=== PATIENT | female | born 1945 | race Caucasian/White ===

== ENCOUNTER 2019-12-16 21:04 | Observation (INO) ==
[2019-12-17] MEDS: ONDANSETRON INJ 2 MG/ML 2 ML VIAL IV PRN ×2 (00:41→12:50)
[2019-12-17] MEDS ORDERED: POLYETHYLENE (MIRALAX) 17 GM PACK PO PRN (01:10)
[2019-12-17] MEDS ORDERED: ALUMINUM/MAGNESIUM SUSP 30 ML UDC PO PRN (01:10)
[2019-12-17] MEDS ORDERED: ALBUT/IPRATROP 3MG/0.5MG NEB 3 ML VIAL INH PRN (01:15)
[2019-12-17] MEDS ORDERED: ALBUTEROL HFA 8 GM INHALER INH PRN (01:15)
--- NOTE | 2019-12-17 01:36 | History & Physical Report ---
Date of Service December 17, 2019 Assessment & Plan (1) COPD (chronic obstructive pulmonary disease): Wanda Wagoner is a 74 year old woman with an unfortunate PMH of severe COPD and stage IV lung cancer with recurrent malignant pleural effusion here for an acute episode of dyspnea Dyspnea with recurrent malignant pleural effusion X ray showing large plerual effusion returned on left side. Currently causing hypoxemic respiratory failure beyond baseline up to 4L from 2L at home Patient was successfully tapped for approximately [address] Zimmer in September which did result in a trapped lung Dr. Zimmer did not believe she was a good candidate for pleur X catheter placement secondary to infection risk Will repeat CXR in am and consulted Dr. Baker for evaluation of effusion and possible drainage Lung Cancer Stage IV adenocarcinoma of left lung, metastatic Not receiving any treatment currently, declined port last month She tells me she wants to do everything possible but was told there is nothing that can be done by her oncologist Consulted oncology for further discussion as patient feels unsure over her treatment options Patient tells me she would like to remain alive as long as possible even though she is aware this is a terminal condition and is asking to be a full code. Tachycardia Likely secondary to pleural effusion Patient also at higher risk for PE, will continue to monitor and low threshold for CTA COPD Continuing home inhalers and duonebs PRN DOes not appear to be COPD exacerbation Home baseline of 2 L of O2 continuously Hyperlipidemia Continue home atorvastatin HTN Continue home bisoprolol and HCTZ Patient hypertensive at present will continue to monitor GERD: Continue home omeprazole Anxiety and Derpession Continuing home lorazepam 1mg PO TID PRN and amitriptylene F/E/N: Regular diet tolerating food well DVT PPX: Will hold lovenox for potential tap tomorrow morning Dispo: Med Tele for (2) Hyperlipemia: (3) Lung cancer: (4) Pleural effusion on left: (5) Dyspnea: Admission and Anticipated Discharge Date Admission Date: December 17, 2019 History of Present Illness Chief Complaint: SHortness of breath, direct admit from [facility] for malignant pleural effusion Primary Care Provider: Peggy Yousif PA-C Wanda Wagoner is a very pleasant 74 year old woman with a past medical history significant for stage IV lung cancer currently not receiving treatment with recurrent malignant pleural effusion. THis was most recently tapped here in September of this year by Dr. Zimmer for 1500 ml with resultant trapped lung. She was referred for oncology but declined therapy and believes there is nothing they can do for her. She does tell me she wants everything done at this point to stay alive as long as possible but did not believe there are any treatments available for her cancer. She declined port placement last month. She has been doing well on 2 L of oxygen at home, but afternoon of 12/15 while sitting on her couch watching television she became acutely short of breath. This came out of the blue like light switch turning on and resolved with her inhalers. Her oxygenation status was poor even after the subjective dyspnea resolved with O2 sats she measured in the high 70's. She called the ambulance who brought her into outside hospital for evaluation. In ED labwork was notable for no elevated white count, negative troponin. Her vital signs significant for hypoxemic respiratory failure requiring 4L up from her home baseline of 2. She was found to have a recurrence of her malignant pleural effusion on the left side that she has had in the past on CXR. Decision was made to transfer here for further evaluation and possible thoracentesis or pleur x catheter placement. CUrrently she tells me she is feeling at her baseline in terms of her respiratory status. SHe is endorsing nausea which she says she always has and that it comes and goes. She denies chest pain, leg swelling, abdominal distension at present though she tells me at times her abdomen does appear distended. She has no belly pain, no vomiting, no diarrhea or constipation. She tells me she has been eating and drinking well and denies any other concerns on review of systems. She remains of 4L O2 via NC and is saturating around 92%. She is tachycardic into the 120's sinus, her blood pressure has been hypertenisve currently at 153/90. Allergies Allergy/AdvReac Type Severity Reaction Status Date / Time influenza virus vaccine, Allergy Severe Respiratory Verified 10/31/19 08:26 specific failure cephalexin [From Keflex] Allergy Mild Rash Verified 10/31/19 08:26 Home Medications Home Medications Medication Instructions Recorded Confirmed Type albuterol sulfate 90 mcg/actuation 2 puffs INH Q4H PRN 07/15/19 10/31/19 History aerosol inhaler amitriptyline 100 mg tablet 100 mg PO HS 07/15/19 10/31/19 History atorvastatin 10 mg tablet 10 mg PO HS 07/15/19 10/31/19 History bisoprolol 5 1 tab PO QAM 07/15/19 10/31/19 History mg-hydrochlorothiazide 6.25 mg tablet ipratropium-albuterol 3 ml INHALATION QID PRN 09/04/19 10/31/19 History lorazepam [Ativan] 1 mg PO TID PRN 09/04/19 10/31/19 History omeprazole 20 mg PO QAM 09/04/19 10/31/19 History prednisone 10 mg tablet See Rx Instructions PO DAILY #20 10/17/19 10/31/19 Rx tab tiotropium 2.5 mcg-olodaterol 2.5 2 puffs INH DAILY #4 gm 10/17/19 10/31/19 Rx mcg/actuation mist for inhalation Past Med/Surg History Social History (Updated 09/03/19 @ 11:01 by Maylin Garcia RN) Preferred Language: [place] Communication Ability: Effective Pediatric Registered Nurse Required: No Beliefs That Will Affect Care: None marital status: Current Living Situation: Spouse Current Living Situation Comment: Lives w/ , daughters live in close vicinity and are active in 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 Other Information That Helps Us Care for You: No Feels Safe at Home: Yes Safety Concerns: Feels Safe At This Time Smoking Status: Former smoker Tobacco Type: cigarettes ; packs per day: 1 ; Cigarettes Per Day: 20 ; Do You Dip or Chew Tobacco: No ; Smoking End Date: 2005 - Smoked ppd x 40 yrs ; Second Hand Exposure: Yes ; Hx Alcohol Use: No Hx Substance Use: No Review of Systems Review of Systems: All systems reviewed & are unremarkable except as noted in HPI & below Physical Exam Physical Exam: Constitutional: Frail appearing 74 year old woman sitting up in bed, in no acute distress conversing comfortably with nasal cannula in place at 4L Eyes: Anicteric sclerae, EOMMI bilaterally ENMT: No concerns at present Respiratory: Lungs sounds diminished globally and absent left mid and lower lung panchal Cardiovascular: HEart sounds dual, no m/r/s/g, peripheral pulses strong and equal, tachycardic, regular rhythm trace lower extremity edema GI: Abdomen, soft nontender, non distended, no masses SKin: No lesions, no wounds appreciated Neuro: Awake alert and oriented to person place, time and situation Results & Data Results & Data ([facility]) Vital Signs (Past 12 Hours) Vital Signs Temp Pulse Resp BP Pulse Ox 12/17/19 00:13 36.8 C 119 H 20 153/90 H 92 Code Status & VTE Plan VTE Prophylaxis Plan VTE Prophylaxis will be ordered: Yes Supervising Physician Co-Signing Physician Notes Patient seen and examined, chart reviewed, case discussed with Dr. Patel and I agree with his assessment and plan as documented above. Briefly, patient is a 74yo C female with history of COPD on 2L O2 at home, stage IV NSCLC with recurrence of left sided malignant pleural effusion, dyspnea and tachycardia. She initially presented to [facility] and was subsequently transferred to [facility] as she has had thoracentesis x 2 in the past by Dr. Zimmer in August and September On exam she is afebrile, tachycardic, RR=20, 92% on RA Resting comfortably, NAD, speaking in complete sentences Heart - +S1/S2, regular, tachycardic, no m/r/g Lungs - markedly diminished BS on left, dullness to percussion, no rales/rhonchi/wheezes Abd - +BS, soft, NT/ND Ext - no edema, tenderness, redness Labs and image report from [facility] reviewed CXR with large left pleural effusion EKG with ST at 116bpm, no acute ischemic changes Assessment/Plan: 74yo C female with COPD, Stage IV NSCLC presenting with dyspnea, tachycardia, increased O2 requirement in setting of recurrence of left sided pleural effusion -Admit to PCU -Continue supplemental O2 as needed to maintain saturation 88-92% in patient with COPD -Consult Pulmonology for thoracentesis in AM, ?Placement of PleurX catheter - appreciate assistance with this case. Patient presently in no visible respiratory distress. Should she acutely decompensate overnight will perform bedside thoracentesis. -Consult Oncology re: treatment options for patients malignancy. Appreciate assistance wtih this case -Monitor HR - upon review of patient's prior hospital days her resting HR tends to be mildly elevated (88 - 122 bpm). Most likely multifactorial - medication effects, dyspnea. Once medically optimized may consider increasing home dose of BB -Remainder of plan as above Resident Activity Tracking Resident Involvement: Resident Care Provided Care Provided: Adult Hospital Medicine
[2019-12-17] MEDS: ACETAMINOPHEN 325 MG TAB PO PRN ×2 (02:20→08:34)
[2019-12-17] MEDS: LORazepam 1 MG TAB PO PRN ×2 (02:21→18:48)
[2019-12-17] MEDS: AMITRIPTYLINE HCL 100 MG TAB PO SCH ×2 (02:21→19:48)
[2019-12-17] MEDS: ATORVASTATIN 10 MG TAB PO SCH ×2 (02:21→19:48)
--- NOTE | 2019-12-17 05:07 | Billing Data ---
Date of Service December 17, 2019 Coding Level of Care Code 13958 Initial Inpt Care Lvl 3
[2019-12-17] MEDS ORDERED: ENOXAPARIN INJ 30 MG/0.3 ML SYR SQ SCH (06:00)
[2019-12-17] MEDS: PANTOprazole 40 MG TAB PO SCH (08:34)
[2019-12-17] MEDS: hydroCHLOROthiazide 25 MG TAB PO SCH (08:34)
[2019-12-17] MEDS: BISOPROLOL FUMARATE 5 MG TAB PO SCH (08:34)
--- NOTE | 2019-12-17 10:44 | Consultation Report ---
DATE OF CONSULTATION: 12/17/2019 NOTICE TO RECEIVING DEMOCRAT/AGENCY This information is strictly Confidential and protected under [place] law. [place] law prohibits you from making any further disclosure of this information unless further disclosure is expressly permitted by the written consent of the person to whom it pertains or is authorized by law. A general authorization for the release of medical or other information is not sufficient for this purpose. Hospital accepts no responsibility if the information is made available to any other person, INCLUDING THE PATIENT. REASON FOR CONSULTATION: History of stage IV nonsmall cell lung cancer. Diagnosis established in May of 2019. The patient was admitted for direct transfer from [facility] because of acute onset shortness of breath and dyspnea on exertion. HISTORY OF PRESENT ILLNESS: Wanda Wagoner is a pleasant 74-year-old elderly female from [facility] well known to [facility] originally evaluated by Dr. Aragon, last seen in August of 2019 to discuss treatment options for recently diagnosed nonsmall cell lung cancer. According to Dr. Aragon's documentation, the patient had presented in May, status post fall, had come to the Emergency Room and CT of the chest performed on 06/16/2014 revealed a 2.4 cm lung mass in the superior segment of the left lower lobe. She had a followup PET CT scan, which also confirmed a hypermetabolic mass in the same location as well as a left pleural effusion and incidentally noted focus of uptake in the anterolateral wall of the ascending colon. She subsequently underwent thoracentesis on 09/04/2019 and cytology was sent. Pathology was positive for adenocarcinoma of the lung. There was PD-L1 40% positive. The remainder of the biomarkers were pending. Again, the patient saw Dr. Aragon on 09/20/2019 and according to his assessment the patient was considering proceeding with combination carboplatin, pemetrexed and pembrolizumab awaiting the remainder of her biomarkers. He had also recommended colonoscopy to be done to further investigate the radiographic findings described above. When I interviewed Wanda this morning she made it relatively clear to me that she had opted not to pursue chemotherapy citing fear of side effects and feeling sick during treatment. It is now 12/17/2019 and chances are that her disease has progressed significantly. She presented with shortness of breath once again, was seen initially at [facility] in [place]. Chest x-ray revealed recurrent left pleural effusion. From a clinical standpoint, it seems like she is maintaining a reasonable performance status overall surprisingly. She has no current pain issues. She states her appetite has been relatively good, denying any overt weight loss. She obviously needs a thoracentesis and should be reconsidered for a PleurX catheter for palliation minimally. She was not the best historian and really I do not have a good handle on where she is mentally. Probably should convene with family members to collectively make a decision moving forward. Certainly, she has been delayed since diagnosis which puts her in a very poor prognostic category moving forward. PAST MEDICAL HISTORY: Stage IV adenocarcinoma of the lung (malignant left-sided pleural effusion), EGFR expression, ALK expression is all unknown. We will follow up with pathology to clarify her biomarker status. PD-L1, she is a 40% expresser by immunohistochemistry. She suffers from anxiety, COPD, depression. PAST SURGICAL HISTORY: Includes tonsillectomy, D&C, hernia repair, removal of thyroid nodule and appendectomy. CURRENT MEDICATIONS: Albuterol inhaler 2 puffs inhaled q.4 hours, amitriptyline 100 mg p.o. at bedtime, atorvastatin 10 mg p.o. at bedtime, bisoprolol 5 mg/hydrochlorothiazide 6.25 mg 1 tablet p.o. every day, ipratropium/albuterol 3 mL inhaled via nebulizer q.i.d. p.r.n., Ativan 1 mg p.o. t.i.d. p.r.n., omeprazole 20 mg p.o. daily, prednisone 10 mg, CRX instructions daily I suspect for appetite stimulation, Tiotropium 2 puffs inhaled daily. ALLERGIES: FLU VACCINE AND CEPHALEXIN. SOCIAL HISTORY: Resides with her family. She is a reformed smoker. Negative for alcohol or substance abuse. FAMILY HISTORY: Noncontributory. REVIEW OF SYSTEMS: As per HPI, most notably for subacute onset shortness of breath and dyspnea on exertion attributable to recurrent left pleural effusion. She denies anorexia or weight loss. No fevers, chills or sweats at present. SKIN: No rashes or lesions. No history of dermatoses. HEENT: Negative for headaches, lightheadedness or dizziness. No acute visual or hearing deficits. No sinus symptoms, sore throat or dysphagia. LYMPH: No history of lymphoproliferative disease. CARDIAC: No history of coronary artery disease, no angina or palpitations. PULMONARY: Positive for history of COPD. She presented with subacute onset shortness of breath and dyspnea on exertion with recurrent left-sided pleural effusion. GASTROINTESTINAL: She denies any ongoing abdominal pain. No nausea, vomiting, diarrhea or constipation, hematochezia or melenotic stools. GENITOURINARY: No hematuria, dysuria, urinary incontinence. PSYCHIATRIC: Positive for anxiety. ENDOCRINE: Negative for thyroid disease or diabetes mellitus. MUSCULOSKELETAL: No skeletal pain. No arthralgias or myalgias. NEUROLOGIC: Negative for seizure, stroke, or migraine headache. HEMATOLOGIC: Negative for anemia, thrombophilia or bleeding diathesis. PHYSICAL EXAMINATION: GENERAL: Very pleasant 74-year-old female, in no acute distress. VITAL SIGNS: Temperature 36.5, pulse 109, respiratory rate 18, blood pressure 147/93. SKIN: Turgor is fair. No rashes or lesions. No ecchymosis or petechial rash noted. HEENT: Head is atraumatic, normocephalic. Eyes PERRLA, EOMI. Sclerae nonicteric. No conjunctival injection. Nares patent without rhinorrhea or discharge. Throat is clear. Tongue is midline. Mucous membranes are moist. NECK: Supple without JVD or thyromegaly. LYMPH: No cervical, supraclavicular, axillary palpable nodes. HEART: Regular rate and rhythm. No clicks, rubs, murmurs or gallops. PULMONARY: Diminished left posterior base breath sounds, faint expiratory wheezes heard diffusely. ABDOMEN: Soft, nontender, nondistended, without palpable hepatosplenomegaly. EXTREMITIES: No clubbing, cyanosis or edema. MUSCULOSKELETAL: Strength and pulses are equal in all 4 quadrants. NEUROLOGICAL: She is awake, alert and oriented x3. Cranial nerves II-XII are grossly intact. No focal deficits noted. LABORATORY DATA: None ordered. RADIOGRAPHIC DATA: None ordered. IMPRESSION: 1. Recurrent left sided malignant pleural effusion. 2. Stage IV adenocarcinoma of the lung (PD-L1 avid). 3. Tachycardia. 4. Exacerbation of chronic obstructive pulmonary disease. 5. Essential hypertension. 6. Anxiety/depression. PLAN: It was my pleasure to visit with Wanda at bedside today. Wanda is well known to [facility], was originally evaluated by Dr. Aragon back in August of this year with a diagnosis of stage IV nonsmall cell lung cancer. Dr. Aragon offered a salvage therapy, particularly pemetrexed and carboplatin in conjunction with pembrolizumab. The patient this morning states that therapy was indeed offered and she opted not to pursue therapy and failed to follow up further with medical oncology. She appears to be similar in mindset at bedside regarding any salvage therapy. I would be happy to engage with family members to get their thoughts moving forward before we make final disposition in Wanda's case. I think it is very reasonable to ask palliative care to weigh in. I am not objecting to providing chemo if the patient desires to pursue treatment. Obviously, there has been significant delay since diagnosis which puts her in a much poorer prognostic category moving forward. Would proceed with thoracentesis with palliative intent. Not sure if Dr. Zimmer may change his mind with PleurX catheter as insertion would certainly make life easier for Wanda moving forward. She does not appear to be suffering from skeletal pain or other symptoms suggestive of a rapid clinical decline. Again, I would be more than happy to reengage with Wanda and her family in the outpatient arena to discuss further. Would stabilize her medically and proceed with discharge when appropriate to do so. I have nothing further to add, but would be more than happy to again engage with Wanda's family to get a little better hold on her mindset and refusal of treatment.
--- NOTE | 2019-12-17 11:04 | XRay Report ---
XR chest 2V PA/lateral CLINICAL HISTORY: history of pneumo ex vacuo and malignant effusion COMPARISON STUDY: 10/14/2019 FINDINGS: Significant left pleural effusion. This appears to occupy the space of the prior pneumothor ax plus a component of mild compressive change. There is a small right effusion. Pulmonary vasculature is prominent. IMPRESSION: 1. Interval development of a large left and to a lesser extent minimal right pleural effusion. 2. Underlying components of congestive failure may be present. ACT 112: Negative or not required by law. The above report was generated using voice recognition software. It may contain grammatical, syntax or spelling errors. Electronically signed by: Lenin Hardin M.D. 12/17/2019 11:03 AM
--- NOTE | 2019-12-17 11:52 | Electrocardiogram Report ---
Test Reason : Blood Pressure : / mmHG Vent. Rate : 116 BPM Atrial Rate : 116 BPM P-R Int : 178 ms QRS Dur : 080 ms QT Int : 292 ms P-R-T Axes : 056 006 -25 degrees QTc Int : 405 ms Poor data quality, interpretation may be adversely affected Sinus tachycardia Abnormal ECG When compared with ECG of 03-SEP-2019 14:36, No significant change was found Confirmed by Lizandro Ovalle ([id number]) on 12/17/2019 11:52:12 AM Referred By: Lisseth Kearney Confirmed By:Ridge Ovalle
--- NOTE | 2019-12-17 13:37 | Palliative Care Consultation ---
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 Patient was originally seen after a fall back in Apr/May 2019, subsequently found to have a left lung mass and left pleural effusion. Pleural effusion found to be malignant. PET/CT scan showed the left lung mass as well as a lesion on the ascending colon. Patient was seen by Dr. Aragon for heme/onc. It was recommended to try a regimen of chemo as well as have a port placed, but patient declined and opted for more symptomatic treatment. She last had a thoracentesis in September [address] Zimmer. He did not favor placing a pleur-x catheter at that time due to patient's small stature and risk of infection. Patient is noted to have lost about 7kg since August 2019. She is planned to have another thoracentesis done today. Dr. Mathis saw patient for heme/onc and stated that if patient wished to pursue salvage therapy, he could offer chemo, but patient again declined. He suggested getting palliative care involved to discuss goals of care with patient and family. -Palliative MD met with patient this afternoon. Patient reported that she does not want hospice care-- has had negative prior experience with hospice. However, she does admit that she does not want any heroic measures such as CPR, intubation, etc-- see physician's addendum. Patient also confirms that she does not want chemotherapy. Patient stated to palliative physician that she would want her two daughters, Effie and Rosario, to be her decision makers if needed, and gave us permission to speak with them. -I called patient's daughter, Effie Arizmendi ([phone]). There was another female family member present in the background who I could hear. I introduced myself and palliative care. Immediately, Effie became very upset and agitated. She stated, "We don't want nothing to do with hospice or palliative care." She proceeded to state that she is very upset that her mother has been in our facility since last evening and the patient has not had her thoracentesis yet, and the family has not been contacted. I attempted to explain why I was calling and that goals had been discussed with her mother. She stated, "We know what she wants, to come home and live in peace. We know she's going to , we just want her to come home." Effie's anger escalated to a point that I was unable to speak with her further. I informed her that I would ask the attending physician to call her at her request. -Patient was changed to DNR/DNI per her wishes, as discussed with MD. Plan is for thoracentesis some time today. -Patient told case management she plans to return home where she lives with her . She declines needing home health and made it very clear she is not interested in hospice at any point. -PLease contact us if patient's condition changes or there are any further palliative care needs. For now, we will follow patient's chart peripherally. (2) Dyspnea: (3) Lung cancer: (4) COPD (chronic obstructive pulmonary disease): Supervising Physician Co-Signing Physician Notes Chart reviewed, patient seen and examined, collaborated with KODI Nixon as well as attending physician Dr. Spear. Patient reported she came to the hospital for increased shortness of breath-she has a history of left malignant pleural effusion-tapped in August for 1100 cc and tapped again on October 14 for 1450 cc. Patient also complains of nausea with vomiting which started yesterday-she reports Zofran is effective. Patient had spoken with Dr. Mathis from oncology earlier today-she is not interested in any chemo or aggressive treatment-she stated "what good would not do". Patient states she would like to return home-however there is hoping to have some fluid removed to help with her shortness of breath. Patient reports she is on 2 L of O2 at home-she has been on O2 since July. Patient stated she does not have advanced directives or living will, did name her 2 daughters as healthcare surrogate's, does not have paperwork stating such. Patient states she has been for 54 years-she feels her would want to be included in decision-making and would listen to her 2 daughters Spoke with patient regarding returning home with home health, also discussed possible hospice-patient stated she had seen "hospice" before and did not want to have anything to do with it. Discussed patient's current CODE STATUS-patient would want procedures done that would aid with her comfort, she did not want intubation, placed on a ventilator, chest compressions or shock. Explained to patient that a DO NOT RESUSCITATE order would not impact her current treatment, but would only become pertinent if there was a severe change in condition. Patient voiced understanding and gave permission to speak with her and HER-2 daughters. Refer to above notation regarding conversation between KODI Nixon and patient's daughters. Patient's goal is to return home as soon as possible, states she was able to ambulate at home to the bathroom-would get short of breath and fatigued when returning from the bathroom. She also stated she was able to do some chores around the house such as cooking. Patient does report weight loss-however does not know how much weight she has lost. PE: Patient awake and alert, positive mild distress due to nausea-patient did receive a dose of Zofran during visit. HEENT: EOMI, hearing within normal limits, poor dentition Respirations: Increased respiratory rate, diminished breath sounds right base, diminished breath sounds on the left CV: Tachycardic on exam, no edema Abdomen: Soft, nontender on light palpation Extremities: Thin and cachectic Neuro: Alert and oriented x4 Agree with above note, assessment and plan as per KODI Nixon -due to daughter's wishes for palliative care not to be involved with patient's care will follow peripherally, please consult if condition changes. History of Present Illness Attending Physician: Juve Spear History of Present Illness This 74 year old female patient with advanced COPD, on chronic oxygen at 2LNC, and stage IV adenocarcinoma of the lung with malignant pleural effusion, presented to the hospital as a transfer from [facility] for acute dyspnea and recurrent left malignant pleural effusion. Patient was originally seen after a fall back in Apr/May 2019, subsequently found to have a left lung mass and left pleural effusion. Pleural effusion found to be malignant. PET/CT scan showed the left lung mass as well as a lesion on the ascending colon. Patient was seen by Dr. Aragon for heme/onc. It was recommended to try a regimen of chemo as well as have a port placed, but patient declined and opted for more symptomatic treatment. She last had a thoracentesis in September [address] Kesha ramos. He did not favor placing a pleur-x catheter at that time due to patient's small stature and risk of infection. Patient is noted to have lost about 7kg since August 2019. She is planned to have another thoracentesis done today. Dr. Mathis saw patient for heme/onc and stated that if patient wished to pursue salvage therapy, he could offer chemo, but patient again declined. He suggested getting palliative care involved to discuss goals of care with patient and family. Thank you kindly for this consult. Allergies Allergy/AdvReac Type Severity Reaction Status Date / Time influenza virus vaccine, Allergy Severe Respiratory Verified 10/31/19 08:26 specific failure cephalexin [From Keflex] Allergy Mild Rash Verified 10/31/19 08:26 Home Medications Home Medications Medication Instructions Recorded Confirmed Type albuterol sulfate 90 mcg/actuation 2 puffs INH Q4H PRN 07/15/19 12/17/19 History aerosol inhaler amitriptyline 100 mg tablet 100 mg PO HS 07/15/19 12/17/19 History atorvastatin 10 mg tablet 10 mg PO HS 07/15/19 12/17/19 History bisoprolol 5 1 tab PO QAM 07/15/19 12/17/19 History mg-hydrochlorothiazide 6.25 mg tablet ipratropium-albuterol 3 ml INHALATION QID PRN 09/04/19 12/17/19 History lorazepam [Ativan] 1 mg PO TID PRN 09/04/19 12/17/19 History omeprazole 20 mg PO QAM 09/04/19 12/17/19 History prednisone 10 mg tablet See Rx Instructions PO DAILY #20 10/17/19 10/31/19 Rx tab tiotropium 2.5 mcg-olodaterol 2.5 2 puffs INH DAILY #4 gm 10/17/19 12/17/19 Rx mcg/actuation mist for inhalation Patient History Medical History (Updated 12/17/19 @ 14:15 by Jose Baker MD) Acute hypoxemic respiratory failure Anxiety Chronic obstructive pulmonary disease Depression GERD (gastroesophageal reflux disease) Hyperlipidemia Hypertension Lung cancer dx 08/2019- 2lpm via n/c continuous Lung entrapment Osteoarthritis Surgical History H/O: hysterectomy JEFF History of appendectomy during hysterectomy History of dilatation and curettage x2 History of thoracentesis AUG 2019 @ [facility] History of tonsillectomy S/P hernia surgery right inguinal hernia repair S/P removal of thyroid nodule Family History Mother Diabetes Heart disease Father Heart disease Brother Cancer Sister Breast cancer Cancer Other No family history of adverse response to anesthesia Social History Preferred Language: Sri Lankan Communication Ability: Effective 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 Other Information That Helps Us Care for You: No Feels Safe at Home: Yes Safety Concerns: Feels Safe At This Time Smoking Status: Former smoker Tobacco Type: cigarettes ; packs per day: 1 ; Cigarettes Per Day: 20 ; Do You Dip or Chew Tobacco: No ; Smoking End Date: 2005 - Smoked ppd x 40 yrs ; Second Hand Exposure: Yes ; Hx Alcohol Use: No Hx Substance Use: No Results & Data Vital Signs (Past 12 Hours) Vital Signs Temp Pulse Pulse Resp BP Pulse Ox 12/17/19 11:29 36.2 C L 99 H 20 136/85 97 12/17/19 08:15 104 H 12/17/19 07:39 36.5 C 109 H 18 147/93 H 95 Coding Level of Care Code 34275 Inpt Consult Level 3 Diagnoses Goals of care, counseling/discussion Z71.89 Dyspnea R06.00 Lung cancer C34.90 COPD (chronic obstructive pulmonary disease) J44.9 Time Spent (min) 70 Time Spent Midlevel A total of 30 minutes was spent by this FARM FIELD MANAGER in reviewing chart, speaking with palliative and attending physicians, and speaking with patient's daughter by phone to discuss goals of care. Attending Total time spent 40 minutes with greater than 50% of the time spent at bedside discussing patient's goals and exploring treatment options. Collaborated with patient's attending physician on the unit.
--- NOTE | 2019-12-17 13:51 | Pulmonary Consultation ---
Date of Consultation December 17, 2019 Assessment & Plan (1) Pleural effusion on left: 74-year-old female with a past medical history of stage IV adenocarcinoma of the lung with a malignant pleural effusion and lung entrapment. She has evidence of reaccumulation of the left pleural space which may be simple reaccumulation of the fluid due to her previous lung entrapment and likely also represents reaccumulation of the malignant effusion. I will go ahead and proceed with a thoracentesis if the patient is willing to undergo the procedure. If the patient experiences improvement in her dyspnea with the thoracentesis, consideration for a Pleurx catheter can be made and I will dis cuss this with the patient's thoracic surgeon, Dr. Schneider. I do think that the patient's overall prognosis is extremely poor and that she would benefit from a more palliative approach. Appreciate our palliative care colleagues being involved in this patient's care. This was also discussed with the patient's hospitalist. (2) Goals of care, counseling/discussion: (3) Lung entrapment: (4) Acute hypoxemic respiratory failure: History of Present Illness Reason for Consultation: Left-sided recurrent pleural effusion Requesting Physician: Hospitalist Attending Physician: Juve Spear History of Present Illness 74-year-old female with a past medical history of metastatic adenocarcinoma with a left malignant pleural effusion (previously underwent thoracentesis by Dr. Webb in September), COPD, chronic hypoxemic respiratory failure on oxygen who presents the hospital on 12/16/2019 due to increasing hypoxemia. The patient was not able to supply me with a very good history at the moment given that she seemed a bit overwhelmed with her emotions and was also nauseous. She was tearful at times telling me that she just "wants to go home and has pain in her stomach". Based on what I can gather from the chart review, she apparently became abruptly short of breath while watching TV last night. An ambulance was called for evaluation and she was found to have saturations in the 70s. She is currently on 4 L nasal cannula. A chest x-ray was performed at [facility] which demonstrated a large left pleural effusion and she was transferred to [facility] for possible thoracentesis and Pleurx catheter placement. Repeat chest x-ray today read demonstrates a large left pleural effusion. She had a thoracentesis previously in September which resulted in the lung entrapment which was thought to be related to her malignancy. At that time, she apparently refused treatment for her malignancy. I also discussed the case with the patient's thoracic surgeon, Dr. Schneider who indicated to me that he did not think that she was a good candidate for Pleurx catheter placement at that time due to risk of infection and overall poor performance status. Allergies Allergy/AdvReac Type Severity Reaction Status Date / Time influenza virus vaccine, Allergy Severe Respiratory Verified 10/31/19 08:26 specific failure cephalexin [From Keflex] Allergy Mild Rash Verified 10/31/19 08:26 Home Medications Home Medications Medication Instructions Recorded Confirmed Type albuterol sulfate 90 mcg/actuation 2 puffs INH Q4H PRN 07/15/19 12/17/19 History aerosol inhaler amitriptyline 100 mg tablet 100 mg PO HS 07/15/19 12/17/19 History atorvastatin 10 mg tablet 10 mg PO HS 07/15/19 12/17/19 History bisoprolol 5 1 tab PO QAM 07/15/19 12/17/19 History mg-hydrochlorothiazide 6.25 mg tablet ipratropium-albuterol 3 ml INHALATION QID PRN 09/04/19 12/17/19 History lorazepam [Ativan] 1 mg PO TID PRN 09/04/19 12/17/19 History omeprazole 20 mg PO QAM 09/04/19 12/17/19 History prednisone 10 mg tablet See Rx Instructions PO DAILY #20 10/17/19 10/31/19 Rx tab tiotropium 2.5 mcg-olodaterol 2.5 2 puffs INH DAILY #4 gm 10/17/19 12/17/19 Rx mcg/actuation mist for inhalation Patient History Medical History Anxiety Chronic obstructive pulmonary disease Depression GERD (gastroesophageal reflux disease) Hyperlipidemia Hypertension Lung cancer dx 08/2019- 2lpm via n/c continuous Osteoarthritis Surgical History H/O: hysterectomy JEFF History of appendectomy during hysterectomy History of dilatation and curettage x2 History of thoracentesis AUG 2019 @ [facility] History of tonsillectomy S/P hernia surgery right inguinal hernia repair S/P removal of thyroid nodule Family History Mother Diabetes Heart disease Father Heart disease Brother Cancer Sister Breast cancer Cancer Other No family history of adverse response to anesthesia Social History Preferred Language: Mohawk Communication Ability: Effective Size Roller Operator Required: No Beliefs That Will Affect Care: None marital status: Current Living Situation: Spouse Current Living Situation Comment: Lives w/ , daughters live in close vicinity and are active in 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 As noted previously she does complain of shortness of breath and nausea. Physical Exam Constitutional: Patient appears frail and sickly. She is very thin. She is lying in bed. She is emotional and crying at times. Eyes: PERRL, conjunctivae normal, anicteric sclerae ENMT: external ear and nose normal, oropharynx normal Neck: trachea midline, no thyromegaly Respiratory: Diminished breath sounds on the left. Mild crackles on the right. Mildly tachypneic. Cardiovascular: No significant murmurs rubs or gallops Gastrointestinal (Abdomen): Mildly tender to palpation. Normal bowel sounds Musculoskeletal: no cyanosis or clubbing, extremities motor strength 5/5 Skin: no rashes, warm and dry Neurologic: patellar DTR's 2+ bilat, sensation intact Psychiatric: Labile mood. Emotional. Results & Data Results & Data ([facility]) Vital Signs (Past 12 Hours) Vital Signs Temp Pulse Pulse Resp BP Pulse Ox 12/17/19 11:29 97.2 F L 99 H 20 136/85 97 12/17/19 08:15 104 H 12/17/19 07:39 97.7 F 109 H 18 147/93 H 95 I personally reviewed this patient's prior labs, chest imaging and notes. I discussed the case with the patient's thoracic surgeon. PG Care Time/CCT Total # of Minutes Spent Total Time Spent with Patient: Total time spent is greater than 50% in coordination of care (as documented) at patient's floor/unit and/or counseling patient: [place] [address] Initial Inpt Care Lvl 3 Patient Type New Diagnoses Pleural effusion on left J90 Goals of care, counseling/discussion Z71.89 Lung entrapment J98.4 Acute hypoxemic respiratory failure J96.01 Time Spent (min) 65
--- NOTE | 2019-12-17 16:12 | XRay Report ---
XR chest 1V portable HISTORY: 74 years-old Female post thoracentesis status post thoracentesis. Bilateral pleural effusi ons COMPARISON: Chest radiographs of same day at 10:56 AM TECHNIQUE: Portable AP view of the chest FINDINGS: Decreased size of the large left pleural effusion status post thoracentesis. A moderate amount of lef t-sided pleural fluid remains. There is a large left-sided pneumothorax status post thoracentesis whi ch is predominately left basilar and lateral left apical with lateral pleural separation measuring up to approximately 1.5 cm. Small right pleural effusion with persistent right lung base opacities. Emp hysema. Cardiomegaly with persistent widening of the mediastinum. Pulmonary vascular congestion with interstitial coarsening. There is improved aeration of the left lung. Sigmoidal thoracolumbar scolios is. Degenerative changes of the shoulders and spine. Likely remote lower lateral left rib fracture. IMPRESSION: 1. Decreased size of the left pleural effusion status post thoracentesis. A moderate amount of left-s ided pleural fluid remains. Additionally, there is a large left basilar predominant pneumothorax. Fol low-up is needed to exclude unexpanded/trapped lung. 2. Small right pleural effusion with persistent right lung base opacities. 3. Cardiomegaly with pulmonary vascular congestion. 4. Emphysema with chronic interstitial coarsening. ACT 112: Negative or not required by law. The above report was generated using voice recognition software. It may contain grammatical, syntax o r spelling errors. Electronically signed by: Glenroy Tracy M.D. 12/17/2019 4:10 PM
--- NOTE | 2019-12-17 16:39 | Procedure Note ---
Procedure Note Date of Service December 17, 2019 Note Procedure: Diagnostic and therapeutic ultrasound-guided catheter thoracentesis Assisted Living Assistant: Dr. Jose Baker Indication: Pleural effusion Consent: Signed by patient and verified with timeout prior to procedure Anesthesia: 8 mL's of 1% lidocaine without epinephrine given locally Procedure: Consent was verified and timeout performed. Appropriate imaging studies were reviewed prior to the procedure. Patient was placed in a semirecumbent and limited thoracic ultrasound was performed of the left chest. See separate imaging. The site appropriate for thoracentesis was selected. The skin was prepped and draped in normal sterile fashion. Lidocaine was used for local analgesia. Fluid was aspirated via the finder needle. A small skin chey was made with the scalpel and the catheter over the needle apparatus was advanced over the rib into the pleural space. Using the syringe one-way valve system, a total of 800 mL's of turbid yellow fluid was removed. Procedure was terminated due to aspiration of air. The catheter was removed and observed to be intact. A sterile dressing was applied. Post procedure chest x-ray was ordered. Fluid was sent for cultures, glucose and cytology. The patient notes that she felt "50% better after the procedure". The patient tolerated the procedure well without obvious complication Coding
[2019-12-17 16:48] LABS: Total Protein Pleural Fluid 7.1 g/dl
[2019-12-17 18:21] LABS: Appearance Pleural Fluid CLOUDY; Basophils, Fluid 0 %; Color Pleural Fluid AMBER; Eosinophils, Fluid 2 %; Lymphocytes, Fluid 85 %; Mono,Macrophage,Mesothelial 9 %; Neutrophils, Fluid 4 %; RBC Pleural Fluid (A) 10000 /uL; Source Pleural Fluid LEFT LUNG; WBC Pleural Fluid (A) 641 /uL
--- NOTE | 2019-12-18 07:39 | Communication Note ---
Date of Service: December 17, 2019 Patient was seen and examined. Patient reports feeling well after thoracocenthesis. Patient interested in home health at discharge. Currently accepting changing code status to DNR/DNI. This was explained by palliative care. Updated family.
[2019-12-18] MEDS: hydroCHLOROthiazide 25 MG TAB PO SCH (08:01)
[2019-12-18] MEDS: BISOPROLOL FUMARATE 5 MG TAB PO SCH (08:02)
[2019-12-18] MEDS: PANTOprazole 40 MG TAB PO SCH (08:02)
--- NOTE | 2019-12-18 08:31 | XRay Report ---
XR chest 1V portable CLINICAL HISTORY: 74 years-old Female presenting with pleural effusion. TECHNIQUE: Portable upright AP view of the chest was obtained. COMPARISON: 12/17/2019. FINDINGS: Distorted Cardiomediastinal silhouette. Added density of the right hilum. Redemonstration of the larg e left pneumothorax. Unchanged aeration of the left lung. Bilateral pleural effusions as on prior. In terstitial prominence in the lungs. Minimal right basilar opacity. Underlying osteopenia suspected. D egenerative changes and scoliosis of the spine. Upper abdomen normal. IMPRESSION: 1. Persistent large left pneumothorax with a smaller effusion component. This likely represents a tr apped/unexpanded lung. 2. Mild congestive change may be present as on prior. 3. Right pleural effusion as on prior. 4. Underlying chronic lung disease. ACT 112: Negative or not required by law. Electronically signed by: Tino Swenson M.D. 12/18/2019 8:30 AM
[2019-12-18] MEDS: LORazepam 1 MG TAB PO PRN (14:44)
--- NOTE | 2019-12-24 07:54 | Discharge Summary ---
Date of Service December 18, 2019 Admission HPI Per Admitting Provider Wanda Wagoner is a very pleasant 74 year old woman with a past medical history significant for stage IV lung cancer currently not receiving treatment with recurrent malignant pleural effusion. THis was most recently tapped here in September of this year by Dr. Zimmer for 1500 ml with resultant trapped lung. She was referred for oncology but declined therapy and believes there is nothing they can do for her. She does tell me she wants everything done at this point to stay alive as long as possible but did not believe there are any treatments available for her cancer. She declined port placement last month. She has been doing well on 2 L of oxygen at home, but afternoon of 12/15 while sitting on her couch watching television she became acutely short of breath. This came out of the blue like light switch turning on and resolved with her inhalers. Her oxygenation status was poor even after the subjective dyspnea resolved with O2 sats she measured in the high 70's. She called the ambulance who brought her i nto outside hospital for evaluation. In ED labwork was notable for no elevated white count, negative troponin. Her vital signs significant for hypoxemic respiratory failure requiring 4L up from her home baseline of 2. She was found to have a recurrence of her malignant pleural effusion on the left side that she has had in the past on CXR. Decision was made to transfer here for further evaluation and possible thoracentesis or pleur x catheter placement. CUrrently she tells me she is feeling at her baseline in terms of her respiratory status. SHe is endorsing nausea which she says she always has and that it comes and goes. She denies chest pain, leg swelling, abdominal distension at present though she tells me at times her abdomen does appear distended. She has no belly pain, no vomiting, no diarrhea or constipation. She tells me she has been eating and drinking well and denies any other concerns on review of systems. She remains of 4L O2 via NC and is saturating around 92%. She is tachycardic into the 120's sinus, her blood pressure has been hypertenisve currently at 153/90. Principal Diagnosis malignant plueral effusion Discharge Exam Constitutional: Frail appearing 74 year old woman sitting up in bed, in no acute distress conversing comfortably with nasal cannula in place at 4L Eyes: Anicteric sclerae, EOMMI bilaterally ENMT: No concerns at present Respiratory: Lungs sounds diminished globally and improved breath sounds on left Cardiovascular: HEart sounds dual, no m/r/s/g, peripheral pulses strong and equal, tachycardic, regular rhythm trace lower extremity edema GI: Abdomen, soft nontender, non distended, no masses SKin: No lesions, no wounds appreciated Neuro: Awake alert and oriented to person place, time and situation Discharge Data Allergies Allergy/AdvReac Type Severity Reaction Status Date / Time influenza virus vaccine, Allergy Severe Respiratory Verified 10/31/19 08:26 specific failure cephalexin [From Keflex] Allergy Mild Rash Verified 10/31/19 08:26 Consultations 12/17/19 01:10 Consult Hematology Routine Consult Pulmonology Routine 12/17/19 12:42 Consult Palliative Care Routine 12/17/19 17:27 Consult [facility] pole shaver Routine Ordered Studies 12/17/19 14:42 US point of care ultrasound Stat Hospital Course (1) COPD (chronic obstructive pulmonary disease): Wanda Wagoner is a 74 year old woman with an unfortunate PMH of severe COPD and stage IV lung cancer with recurrent malignant pleural effusion here for an acute episode of dyspnea Dyspnea with recurrent malignant pleural effusion X ray showing large plerual effusion returned on left side. Currently causing hypoxemic respiratory failure beyond baseline up to 4L from 2L at home Patient was successfully tapped for approximately [address] Zimmer in September which did result in a trapped lung Dr. Zimmer did not believe she was a good candidate for pleur X catheter placement secondary to infection risk Patient improved and had 800 ml of turbid yellow fluid. Repeat x-ray following day did not show return of pleural effusion. Will have patient followup with pulmonary as an outpatient in 2 weeks. Lung Cancer Stage IV adenocarcinoma of left lung, metastatic Not receiving any treatment currently, declined port last month She tells me she wants to do everything possible but was told there is nothing that can be done by her oncologist Consulted oncology for further discussion as patient feels unsure over her treatment options Patient tells me she would like to remain alive as long as possible even though she is aware this is a terminal condition. Shd did ultimately agree to DNR status Tachycardia Likely secondary to pleural effusion Patient also at higher risk for PE, will continue to monitor and low threshold for CTA COPD Continuing home inhalers and duonebs PRN DOes not appear to be COPD exacerbation Home baseline of 2 L of O2 continuously Hyperlipidemia Continue home atorvastatin HTN Continue home bisoprolol and HCTZ Patient hypertensive at present will continue to monitor GERD: Continue home omeprazole Anxiety and Derpession Continuing home lorazepam 1mg PO TID PRN and amitriptylene (2) Hyperlipemia: (3) Lung cancer: (4) Pleural effusion on left: (5) Dyspnea: Total Time Total Time Spent Total Time Spent (In Minutes): 32 Total Time Includes: Examination of the Patient, Discharge Planning and Medication Reconciliation Discharge Plan Discharge Items Patient Disposition: Home - Home Health Services Reason For Visit: PLEURAL EFFUSION ON THE LEFT Discharge Diagnosis: Pleural effusion on the left Activity: Resume your previous activity Non-emergency contact: Primary Care Provider Call non-emergency contact if: you have any medication questions Follow-up/Referrals: Jose Baker MD [Physician] - 01/01/20 1:15 pm (you have been scheduled for a phone call visit with Dr. Baker at 1:15PM. The office will call you in advance to arrange this phone call) Peggy Yousif PA-C [Primary Care Provider] - (PLEASE CONTACT YOUR PCP FOR A FOLLOW UP APPOINTMENT WITHIN SEVEN DAYS OF YOUR DISCHARGE. YOUR PCP WILL INSTRUCT YOU ON HOW THEY WISH TO PROCEED WITH YOUR APPOINTMENT. AN OFFICE VISIT OR A TELEPHONE "VISIT" WILL BE DETERMINED.) Diet: Regular Addtl Attending Provider Instructions: Coronavirus disease 2019 (COVID-19) is a virus that causes a respiratory illness. It is caused by a coronavirus called 2019 novel coronavirus (2019- nCoV). There are many types of coronavirus. Coronaviruses are a very common cau se of bronchitis. They may sometimes cause lung infection(pneumonia). Symptoms can range from mild to severe respiratory illness. These viruses are also foundin some animals. COVID-19 was first found in people in [facility], in late 2019. In 2020, several cases of COVID-19 have been confirmed in the [place] Public health officials are working to find the source. How the virus spreads is not yet fully known. It may be spread through droplets of fluid that a person coughs or sneezes into the air. It may be spread if you touch a surface with virus on it, such as a handle or object, and then touch your mouth. What are the symptoms of COVID-19? Some people have no symptoms or mild symptoms. Symptoms may appear 2 to 14 days after contact with the virus. Symptoms can include: Fever Coughing Trouble breathing What are possible complications from COVID-19? In many cases, this virus can cause infection (pneumonia) in both lungs. In some cases, this can cause . How is COVID-19 diagnosed? Your healthcare provider will ask about your symptoms. He or she will also ask about your recent travel and contact with sick people. Testing for the virus is only done through the CDC. If yourhealthcare provider thinks you may have COVID- 19, he or she will work with your local health department and the CDC on testing. Follow all instructions from your healthcare provider. COVID-19 is diagnosed by: Nasal and throat swab. A cotton-tipped swab is wiped inside your nose or throat. This is done to check for viruses in your nasal mucus. Sputum culture. A small sample of mucus coughed from your lungs (sputum) is collected if you have a cough. It is checked for the virus. How is COVID-19 treated? There is currently no medicine to treat the virus. Treatment is done to help your body while it fights the virus. This is known as supportive care. Supportive care may include: Pain medicine. These include acetaminophen and ibuprofen. They are used to help ease pain and reduce fever. Bed rest. This helps your body fight the illness. For severe illness, you may need to stay in the hospital. Care during severe illness may include: IV (intravenous) fluids.These are given through a vein to help keep your body hydrated. Oxygen. Supplemental oxygen or ventilation with a breathing machine (ventilator) may be given. This is done to keep enough oxygen in your body. Are you at risk for COVID-19? If youve been to a place where people have been sick with this virus, you are at risk for infection. You are at risk if you: Recently traveled to an affected area Had contact with a sick person who recently traveled to this area Had contact with a person who was diagnosed with COVID-19 How can COVID-19 be prevented? There is no vaccine yet. The best prevention is to not have contact with the virus. The CDC advises that people should not travel to areas where there are COVID-19 outbreaks right now for any reason that is not urgent. To help prevent spreading the infection, wash your hands often, or use an alcohol-basedhand methane gas collection system operator. If you are in an area with COVID-19: Wash your hands often. Or use an alcohol-based hand methane gas collection system operator often. Only touch your eyes, nose, or mouth with clean hands. Dont have contact with people who are sick. Follow local instructions about being in public. For example, you may be told to not use public transport for a period of time. Stay away from markets that have live or animals. Wash your hands after touching any animals. Don't touch animals that may be sick. Dont share eating or drinking tools with sick people. Dont kiss someone who is sick. Clean surfaces often with disinfectant. If you were in an area with COVID-19 in the last 14 days: Call your healthcare provider. He or she can talk with local health staff to see what action may be needed. Follow all instructions from your provider. Take your temperature every morning and evening for at least 14 days. This is to check for fever. Keep a record of the readings. Keep watch for symptoms of the virus. Tell your provider right away if you have symptoms. If you were in an area with COVID-19 and have a fever or other symptoms: Dont panic. Keep in mind that other illnesses can cause similar symptoms. Stay away from work, school, and public places. Limit physical contact with family members. Don't kiss anyone or share eating or drinking utensils. Clean surfaces you touch with disinfectant. This is to help prevent the virus from spreading. Call your healthcare provider. Explain that you have been exposed to COVID-19 and have symptoms. Do this before going to any hospital. Wait for instructions. Keep in mind that healthcare staff may wear protective equipment such as masks, gowns, gloves, and eye protection. You may be put in a separate room. This is to prevent the possible virus from spreading. Tell the healthcare staff about recent travel. This includes local travel on public transport. Staff may need to find other people you have been in contact with. Follow all instructions the healthcare staff give you. If you have been diagnosed with COVID-19 Follow all instructions from your healthcare provider. Dont leave your home, except to get medical care. Call your healthcare providers office before going. They can prepare and give you instructions. This will help prevent the virus from spreading. Dont go to work, school, or public areas. Dont use public transport or taxis. Stay away from other people in your home. Have them wear face masks around you. Dont share household items or food. Wear a face mask if you can. This includes at home or in a medical facility. Cover your face with a tissue when you cough or sneeze. Throw the tissue away. Wash your hands. Wash your hands often. Caregivers should: Follow all instructions from healthcare staff. Wear a face mask and protective clothing as advised. Wash hands often. Keep track of the sick persons symptoms. Clean surfaces, fabrics, and laundry thoroughly. Keep other people away from the sick person. When to call your healthcare provider Call your healthcare provider: If youve recently traveled and have symptoms If you have been diagnosed with COVID-19 and your symptoms are worse To learn more To find out more about COVID-19, visit the CDC website at www.cdc.gov/coronavirus/2019-ncov/index.html. [employer]. [address] [place] [address]. All rights reserved. This information is not intended as a substitute for professional medical care. Always follow your healthcare professional's instructions. This information has been adapted from [employer] Pending Studies at Discharge: No Stand-Alone Forms: My [facility] [employer] and Tead[employer], Smoking Cessation Medications and DC Order Prescriptions: New acetaminophen [Mapap (acetaminophen)] 325 mg Tablet 650 mg PO Q4H PRN (Reason: fever) Qty: 30 RF: 0 Continued Stiolto Respimat 2.5-2.5 mcg/actuation mist 2 puffs INH DAILY Qty: 4 RF: 2 prednisone 10 mg tablet See Rx Instructions PO DAILY Qty: 20 RF: 0 atorvastatin [Lipitor] 10 mg tablet 10 mg PO HS RF: 0 albuterol sulfate [ProAir HFA] 90 mcg/actuation HFA aerosol inhaler 2 puffs INH Q4H PRN (Reason: sob) RF: 0 bisoprolol-hydrochlorothiazide [Ziac] 5-6.25 mg tablet 1 tab PO QAM RF: 0 amitriptyline 100 mg tablet 100 mg PO HS RF: 0 ipratropium-albuterol 0.5 mg-3 mg(2.5 mg base)/3 mL Solution For Nebulization 3 ml INHALATION QID PRN (Reason: sob/wheezing) RF: 0 lorazepam [Ativan] 1 mg Tablet 1 mg PO TID PRN (Reason: Anxiety) RF: 0 omeprazole 20 mg Tablet,Delayed Release (Dr/Ec) 20 mg PO QAM RF: 0 Discharge Orders: Discharge Order (Routine); Ordered 12/18/19 Ordered By: Juve Spear Admission Data Admit Date/Time: 12/17/19 00:23 Attending Provider: Juve Spear Admit Provider: Lisseth Kearney Primary Care Provider: Peggy Yousif Other Providers: Sy Mathis V. ; Jose Baker ; Gill Sprague ; [facility] Other Interventions: Discharge Summary Assessment (RN) Last Done: 12/18/19 11:46 DC Date/Time DO NOT enter until pt leaves facility: 12/18/19 15:08 Coding Level of Care Code 84767 OBS Care - Discharge Diagnoses COPD (chronic obstructive pulmonary disease) J44.9 Hyperlipemia E78.5 Lung cancer C34.90 Pleural effusion on left J90 Dyspnea R06.00
== END 2019-12-18 15:08 | disposition home health service (06) ==
LOC: SUATTDRO 12-17 00:23 → INTOOBSV 12-17 00:23 → 2N 12-17 00:23